=== PATIENT | female | born 1960 | race Caucasian/White ===

== ENCOUNTER 2016-05-18 11:59 | Emergency (ER) | payer BC ==
[2016-05-18 12:13] VITALS: BP 108/79
--- NOTE | 2016-05-18 13:52 | ERNOTE ---
Dizziness ER Record Date of Service: 05/18/16 Presenting Symptoms: vertigo Time Seen by Provider: 05/18/16 12:58 Source: patient, RN notes reviewed Exam Limitations: no limitations Allergies/Adverse Reactions: Allergies Allergy/AdvReac Type Severity Reaction Status Date / Time No Known Allergies Allergy Verified 05/18/16 12:13 Home Medications: HOME MEDICATIONS Meloxicam [Mobic] 15 mg PO DAILY 05/18/16 [Last Taken Unknown] - History of Present Illness Narrative: 55 y/o female brought to the ED by wheelchair from the walk-in clinic for vertigo. This began 2 days ago when she stood up from her bed. She took Dramamine yesterday with some improvement, but is worse again today. She has no prior history of this. She has been nauseous, but has not vomited since 2 days ago. Date (Duration): 05/16/16 Time (Timing): 03:00 Timing and Duration: sudden onset, still present Associated Symptoms: Present: nausea, vomiting. Absent: hearing loss, ringing/ roaring in ear, ear pain, headache, weakness, numbness, sweating, sense of confusion Sense of movement: Present: spinning Decreased ability to stand/walk:: Present: difficult Usually:: Present: walks w/o assistance Modifying Factors - (Improves): Reports: other - remaining still Modifying Factors - (Worsens): Reports: changing position, movement of head Prior Treament: Denies: recently seen, similar symptoms before Review of Systems - Review of Systems Constitutional: Absent: recent illness, fever, chills EYE: Absent: eye pain, blurred vision ENT: Absent: ear pain, nose congestion Respiratory: Absent: shortness of breath, cough Cardiology: Absent: chest pain, palpitations, syncope Gastrointestinal/Abdominal: Absent: diarrhea, abdominal pain Genitourinary: Present: no symptoms reported Musculoskeletal: Present: muscle pain, neck pain Skin: Absent: rash, lesions Neurological: Present: dizziness/light-headedness. Absent: headache Endocrine: Present: no symptoms reported Hematologic/Lymphatic: Present: no symptoms reported Psych: Present: no symptoms reported - Patient's Past Medical History Patient History - Medical: Arthritis Patient History - Cardiac/Respiratory: No pertinent hx Patient History - Cancer: Breast Patient History - Surgical Procedures: , Other - Mastectomy LMP (females 10-50): Menopausal - Social History Living Situations: spouse Smoking Status: Never smoker Have you smoked in the past 12 months: No Alcohol Use: none Drug Use: none Physical Exam - Physical Exam General Appearance: Present: wd/wn, alert, mild distress Eye Exam: Normal inspection: bilateral, PERRL: bilateral, EOMI: bilateral - no nystagmus Ears, Nose, Throat: Present: normal ENT inspection, hearing grossly normal, normal pharynx Neck: Present: normal inspection, nontender, supple Respiratory: Present: no respiratory distress, normal breath sounds, no accessory muscle use, lungs clear Cardiovascular/Chest: Present: regular rate, rhythm, no murmur, normal peripheral pulses Neurological Exam: Present: alert, oriented, normal mood/affect, no motor/ sensory deficits Skin Exam: Present: normal color, warm/dry ED Progress - Vital Signs Patient's Vital Signs:: I have reviewed the patient's vital signs. Vital Signs: Vital Signs 05/18/16 12:08 Temperature 35.1 C L Pulse Rate 60 Respiratory 14 Rate Blood Pressure 108/79 O2 Sat by Pulse 100 Oximetry - Progress/Reassessment Chief Complaint: Dizziness Progress:: Unchanged Plan - Plan Plan: Contacted PT - patient is to have eval/treatment of vertigo there tomorrow at noon. Unable to see patient today d/t her taking meclizine already today. Order faxed to PT. Departure Clinical Impression: Vertigo - Departure Disposition: Home Follow Up Needed Condition: Stable Instructions: Vertigo, [id number], Form - Excuse from Work, School, or Physical Activity Additional Instructions: Drink plenty of fluids Rest Do not take any more medications for dizziness See physical therapy tomorrow at 12:00 - their # is [phone] Referrals: HERNESTO MAURICIO [Primary Care Provider] -
--- OUTSIDE RECORDS SUMMARY | 2016-05-18 16:10 | XMS REPORT | Continuity of Care Document ---
:1960 Author Organization [facility] ([facility]) Address [address] [place] [address] Phone [phone] Care Team Providers Name Role Phone Marques Elmore Primary Care Provider [phone] Source Comments This disclosure is being made pursuant to the Care Everywhere program, applicable federal and state laws, and may not contain all informaitonavailable regarding this patient.[facility] ([facility]) Active Allergies and Adverse Reactions Allergen Noted Date Severity Reactions Comments No Known Allergies 07/16/2008 Current Medications Prescription Sig. Disp. Refills Start Date End Date Status meloxicam 15 mg tablet Take 15 mg by mouth Active daily. Indications: RHEUMATOID ARTHRITIS acetaminophen 500 mg Take 1,000 mg by Active tablet mouth every 6 hours as needed. Active Problems Problem Noted Date Screening mammogram for high-risk patient 07/28/2006 Most Recent Encounters Date Type Specialty Providers Description 05/05/2016 Hospital Encounter Hematology and KarDeonte reis MD Chief Comp : Patient Oncology Reported Reason For Visit Social History Tobacco Use Types Packs/Day Years Used Date Never Smoker Smokeless Tobacco: Never Used Alcohol Use Drinks/Week oz/Week Comments Yes 6 Standard drinks or equivalent 3.0 Last Filed Vital Signs Vital Sign Reading Time Taken Blood Pressure 116/74 05/07/2015 10:20 AM [facility] Pulse 76 05/07/2015 10:20 AM [facility] Temperature 36.1 C (97 F) 05/07/2015 10:20 AM 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 Respiratory Rate 16 05/07/2015 10:20 AM [facility] Height 1.702 m (5' 7") 05/08/2014 2:01 PM [facility] Weight 65.4 kg (144 lb 2.9 oz) 05/07/2015 10:20 AM [facility] Body Mass Index 22.58 05/07/2015 10:20 AM [facility] Oxygen Saturation 98% 05/07/2015 10:20 AM [facility] Plan of Care Health Maintenance Due Date Last Done Comments Hepatitis B Vaccine (1 of 3 - Primary 1960 Series) Tdap Vaccine 1973 Lipid Disorder Screening 1980 MMR Vaccine 1980 Td Vaccine 1980 Cervical Cancer Screening 1992 Mammogram 2002 Colonoscopy 07/08/2012 Influenza Vaccine: Seasonal (#1) 10/20/2015 HCV Screening Completed 01/23/2002, 01/23/2002 Results from Last 3 Months Not on file
== END 2016-05-18 13:42 | disposition home or self-care (01) ==
LOC: ER 11:59
DX: R42 Dizziness and giddiness (principal); Z85.3 Personal history of malignant neoplasm of breast

== ENCOUNTER 2018-10-11 17:21 | Observation (INO) ==
[2018-10-11] MEDS ORDERED: DIPHTH,PERTUSS(ACELL),TET VAC 0.5 ML VIAL IM ONE (17:45)
--- NOTE | 2018-10-11 17:55 | ERNOTE ---
Head Injury HPI - Narrative Date of Service: 10/11/18 - General Injury to: head, face, nose Time Seen by Provider: 10/11/18 17:30 Source: patient, family Exam Limitations: no limitations - Immun/Allergies/Home Medications Allergies/Adverse Reactions: Allergies Allergy/AdvReac Type Severity Reaction Status Date / Time No Known Allergies Allergy Verified 10/11/18 17:42 Home Medications: HOME MEDICATIONS Letrozole [Femara] 2.5 mg PO DAILY 03/26/17 [Last Taken 03/26/17] Meloxicam [Mobic] 15 mg PO DAILY PRN 03/26/17 [Last Taken Unknown] Palbociclib [Ibrance] 125 mg PO DAILY 03/26/17 [Last Taken 03/26/17] - Pain Score Pain Score #1 Pain Score: 8 - History of Present Illness Narrative: The patient is a 58 year old female who presents for 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 There are no associated symptoms. The patient reports pain to nose, forehead and posterior head, 8/10. There are no alleviating factors. There are aggravating factors of activity. Previous treatments have included: none. The past medical history includes: lymphedema to right upper extremity and metastatic breast cancer. The social history is negative. The patient has had no ill contacts. 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 Patient then fell back striking the back of her head. Patient denies LOC. Patient having bleeding since injury from left nare. Patient also reports pain to left hip since fall, patient ambulatory into ER with assistance of . Review of Systems - Review of Systems Constitutional: Present: no symptoms reported. Absent: recent illness, fever, fatigue EYE: Present: no symptoms reported. Absent: vision changes ENT: Present: nose pain. Absent: ear pain, sore throat Respiratory: Present: no symptoms reported. Absent: shortness of breath, cough Cardiology: Present: no symptoms reported. Absent: chest pain Gastrointestinal/Abdominal: Present: nausea. Absent: vomiting, diarrhea, abdominal pain Genitourinary: Present: no symptoms reported Musculoskeletal: Absent: neck pain Skin: Present: other - laceration Neurological: Present: headache, dizziness/light-headedness All Other Systems: All systems neg except as marked Social History: Tobacco: Smoking Status: Never smoker Physical Exam - Physical Exam General Appearance: Present: wd/wn, alert, moderate distress Head Exam: Present: contusions, lacerations - 3cm to right parietal occiput, t enderness, other - hematoma to right forehead, puncture to base of left nare without through opening to upper lip. Absent: active bleeding Eye Exam: Normal inspection: bilateral, PERRL: bilateral, EOMI: bilateral Ears, Nose, Throat: Present: normal except - - blood noted to left nare without active bleeding, normal pharynx Neck: Present: normal inspection, nontender, full range of motion Respiratory: Present: no respiratory distress, normal breath sounds, no accessory muscle use, lungs clear Cardiovascular/Chest: Present: regular rate, rhythm, no murmur Peripheral Pulses: N=norm/S=strong/W=weak/B=bound/A=absent: Radial (R): Normal, Radial (L): Normal Gastrointestinal/Abdominal: Present: normal bowel sounds, nontender, nondistended, soft, no organomegaly Extremity Exam: Present: normal range of motion, bony tenderness - lateral left hip Neurological Exam: Present: alert, oriented, normal mood/affect, no motor/sensory deficits, 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 - Results and Orders Patient's Lab Results:: I have reviewed the patient's lab results. - Vital Signs Patient's Vital Signs:: I have reviewed the patient's vital signs. Vital Signs: Vital Signs 10/11/18 17:37 Temperature 35.1 C L Pulse Rate 72 Respiratory Rate 16 Blood Pressure 113/79 O2 Sat by Pulse Oximetry 98 - X-Ray X-Ray #1 X-Ray: hip Interpretation: Reviewed by me X-ray Comments: IMPRESSION: 1. No acute osseous abnormality detected. Please see above Electronically signed by Donnie Lanza M.D.. - CT/Ultrasound CT/Ultrasound Narrative: Impression: No acute intracranial process detected. Nondisplaced/hairline right paramedian occipital bone fracture Electronically signed by Donnie Lanza M.D.. IMPRESSION: NO ACUTE OSSEOUS ABNORMALITY Electronically signed by Donnie Lanza M.D.. IMPRESSION: 1. No fracture of the facial bones Electronically signed by Donnie Lanza M.D. - Progress/Reassessment Chief Complaint: Head Injury Progress:: Improved Procedures right occipital Length of Repair/Wound (cm): 3 Wound's Depth/Shape: superficial, into subcutaneous, linear Wound Explored: clean, to base, in bloodless field, no foreign body Wound Intervention: irrigated w/saline Distal NVT: neuro/vasc intact Wound Repaired With: cole Number of Sutures: 5 Layer Closure: Simple Estimated blood loss (ml): 5 Wound Dressing: sterile dressing applied Complications: Pt alberto procedure well Immediate Post Procedure Note: Wound edges well approximated. Patient tolerated procedure well. Discussed with patient prior to closure pain related to local anesthesia vs staple placement, patient declines local anesthesia. Departure Clinical Impression: Post concussion syndrome Occipital bone fracture Qualifiers: Encounter type: initial encounter Fracture type: closed Occipital fracture type: unspecified fracture of occiput Laterality: right Qualified Code(s): S02.119A - Unspecified fracture of occiput, initial encounter for closed fracture Contusion of left hip Qualifiers: Encounter type: initial encounter Qualified Code(s): S70.02XA - Contusion of left hip, initial encounter - Departure Disposition: Still a patient Condition: Fair
[2018-10-11] MEDS ORDERED: ONDANSETRON HCL/PF 2 MG/ML VIAL IV ONE (18:27)
[2018-10-11 18:37] LABS: Hematocrit 34.6 % (37.0-47.0); Hemoglobin 12.1 gm/dL (12.5-16.0); Mean Cell Volume 103.3 fl (78-100); Mean Corpuscular Hemoglobin 36.1 pg (27-31); Mean Platelet Volume 9.6 fl (8-12.5); Neutrophil # 1.4 K/mm3 (1.3-6.0); Neutrophil % 52.7 % (42-75.0); Platelet Count 104 K/mm3 (150-450); Red Blood Count 3.35 M/mm3 (4.2-5.4); Red Cell Distribution Width 13.8 % (11.5-14.0); White Blood Count 2.6 K/mm3 (4.0-10.5)
[2018-10-11 18:56] LABS: Albumin * 3.5 gm/dl (3.4-5.0); Anion Gap 12.3 mmol/L (6.8-13.8); BUN/Creatinine Ratio 22.1 (9.0-21.6); Bilirubin, Total 0.4 mg/dL (0.0-1.1); Ca. Corrected For Albumin 9.8 mg/dL (8.4-10.2); Calcium * 9.7 mg/dL (7.9-10.9); Carbon Dioxide 30.5 mmol/L (24-32.6); Potassium 3.8 mmol/L (3.4-4.6)
[2018-10-11] MEDS ORDERED: HYDROmorphone HCL 1 MG/ML DISP.SYRIN IV ONE (19:11)
[2018-10-11] MEDS ORDERED: ONDANSETRON HCL/PF 2 MG/ML VIAL IV PRN (19:43)
[2018-10-11] MEDS ORDERED: ACETAMINOPHEN 325 MG TABLET PO PRN (20:33)
[2018-10-11] MEDS ORDERED: HYDROmorphone HCL 1 MG/ML DISP.SYRIN IV PRN (20:33)
[2018-10-11] MEDS ORDERED: ceFAZolin SODIUM 1 GM VIAL IM ONE (20:34)
[2018-10-11] MEDS ORDERED: MELOXICAM 15 MG TABLET PO PRN (20:35)
--- NOTE | 2018-10-11 21:06 | HP ---
Chief Complaint - Chief Complaint Date of Service: 10/11/18 Time of Service: 20:51 Chief Complaint: I have headache and facial pain due to head injury History of Present Illness: 58-year-old female with past medical history of metastatic breast cancer with right sided mastectomy, was evaluated in the ER due to head and facial injury that occurred after the patient was injured with a gait that was kicked by a steer. Patient was assisting with loading steer into a truck when the last year kicked the gait of the truck and flung backwards while the patient was standing behind it. Patient was struck in the face causing her to fall backwards and onto her head. Patient's quickly brought to the ER where she underwent multiple imaging studies of her head and face as well as her cervical area which revealed a nondisplaced occipital hairline fracture and hematoma superimposed on to the fracture. Patient also suffered a hematoma on her right frontal area but no fractures of her face were reported. Patient denies LOC but reports becoming nauseous during the ride to the hospital but she did not vomit. Medical History (Updated 10/11/18 @ 20:09 by Jane Gutierrez RN) Breast cancer Surgical History: Surgical History (Updated 10/11/18 @ 20:10 by Jane Gutierrez RN) Cystostomy care H/O section H/O mastectomy Family History: Family History (Last Updated 10/11/18 @ 20:11 by Jane Gutierrez RN) Father Diabetes Mother Diabetes Social History: Tobacco: Smoking Status: Never smoker Peds Patient Hx - Developmental: No Pertinent Hx Peds Patient Hx - Medical: No Pertinent Hx Peds Patient Hx - Cardiac/Respiratory: No Pertinent Hx Peds Patient Hx - Surgical: No Surgical History Patient History - Cancer: No Hx of Cancer Review Of Systems (GEN) - Review of Systems EENTM: Present: Other - Facial pain Respiratory: Present: No Symptoms Reported Cardiac: Present: No Symptoms Reported Abdominal: Present: Nausea Genitourinary: Present: No Symptoms Reported Musculoskeletal: Present: Joint Pain - Chronic right hip pain Neurological: Present: Headache Skin: Present: No Symptoms Reported Endocrine: Present: No Symptoms Reported Allergies/Adverse Reactions: Allergies Allergy/AdvReac Type Severity Reaction Status Date / Time No Known Allergies Allergy Verified 10/11/18 17:42 Home Medications: HOME MEDICATIONS Letrozole [Femara] 2.5 mg PO DAILY 01/06/18 [Last Taken 03/26/17] Meloxicam [Mobic] 15 mg PO DAILY PRN 03/26/17 [Last Taken Unknown] Palbociclib [Ibrance] 125 mg PO DAILY 03/26/17 [Last Taken 03/26/17] Exam - Exam Vital Signs: Vital Signs - Last Taken Temp 36.9 C 10/11/18 20:20 Pulse 56 L 10/11/18 20:20 Resp 12 10/11/18 20:20 BP 130/75 10/11/18 20:20 Pulse Ox 98 10/11/18 20:20 Constitutional: Present: Alert, Oriented x3, Cooperative, Well developed, Well nourished, No distress ENT Exam: Present: normal ENT inspection, hearing grossly normal, pharynx normal, TMs normal, other - Small laceration on left nostril. Eye Exam: bilateral eye: normal inspection, PERRL, EOMI Neck: Present: non-tender, full range of motion, supple, normal inspection, trachea midline Back Exam: Present: normal inspection, no CVA tenderness, no vertebral tenderness Breasts: Present: Other - Right thoracic scar due to right mastectomy Respiratory: Present: chest non-tender, lungs clear, normal breath sounds, no respiratory distress, no accessory muscle use Cardiovascular/Chest: Present: normal peripheral pulses, regular rate, rhythm, no chest tenderness, no edema, no gallop, no JVD, no murmur, no rub Peripheral Pulses: carotid (R): 3+, carotid (L): 3+, femoral (R): 3+, femoral (L): 3+, dorsalis-pedis (R): 3+, dorsalis-pedis (L): 3+ Abdomen: Present: Normal bowel sounds, soft, nontender, nondistended, no rebound tenderness, no hepatospenomegaly, no masses /Rectal: Present: Exam deferred Extremity: Present: normal range of motion, non-tender, no pedal edema, no calf tenderness, normal capillary refill, other - Right upper extremity edema Skin Exam: Present: normal color, warm/dry, no cyanosis Lymphatic: Present: other - Chronic right upper extremity lymphedema Neurologic: Present: 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 as tested, normal cerebellar test, no motor/sensory deficits, alert, normal mood/affect, oriented x 3 Appearance: Present: appropriate appearance Eye contact: Present: cooperative, good eye contact, normal speech Thoughts: Present: normal thought pattern, no apparent hallucination Diagnostic Studies: Abnormal Lab Results 10/11/18 10/11/18 Range/Units 18:31 18:31 WBC 2.6 L (4.0-10.5) K/mm3 RBC 3.35 L (4.2-5.4) M/mm3 Hgb 12.1 L (12.5-16.0) gm/dL Hct 34.6 L (37.0-47.0) % MCV 103.3 H (78-100) fl MCH 36.1 H (27-31) pg Plt Count 104 L (150-450) K/mm3 Eosinophils % 3.9 H (0.0-3.0) % Basophils % 1.6 H (0.0-1.0) % Lymphocytes # 0.86 L (1.5-3.5) k/mm3 Sodium 143 H (132-142) mmol/L Plasma Sodium 143 H (130-142) mmol/L BUN/Creatinine Ratio 22.1 H (9.0-21.6) Random Glucose 117 H (70-110) mg/dL Laboratory Results WBC 2.6 K/mm3 (4.0-10.5) L 10/11/18 18:31 RBC 3.35 M/mm3 (4.2-5.4) L 10/11/18 18:31 Hgb 12.1 gm/dL (12.5-16.0) L 10/11/18 18:31 Hct 34.6 % (37.0-47.0) L 10/11/18 18:31 MCV 103.3 fl (78-100) H 10/11/18 18:31 MCH 36.1 pg (27-31) H 10/11/18 18:31 MCHC 35.0 g/dl (32-36) 10/11/18 18:31 RDW 13.8 % (11.5-14.0) 10/11/18 18:31 Plt Count 104 K/mm3 (150-450) L 10/11/18 18:31 MPV 9.6 fl (8-12.5) 10/11/18 18:31 Immature Gran % (Auto) 0.40 % (0.001-0.429) 10/11/18 18:31 Immature Gran # (Auto) 0.01 K/mm3 (0.000-0.0310) 10/11/18 18:31 52.7 % (42-75.0) 10/11/18 18:31 33.6 % (20-51) 10/11/18 18:31 7.8 % (0.0-9) 10/11/18 18:31 3.9 % (0.0-3.0) H 10/11/18 18:31 1.6 % (0.0-1.0) H 10/11/18 18:31 Nucleated RBC % 0.0 k/mm3 (0-1) 10/11/18 18:31 1.4 K/mm3 (1.3-6.0) 10/11/18 18:31 0.86 k/mm3 (1.5-3.5) L 10/11/18 18:31 0.2 k/mm3 (0.0-1.0) 10/11/18 18:31 0.1 k/mm3 (0.0-0.7) 10/11/18 18:31 Absolute Basophils 0.0 k/mm3 (0.0-0.1) 10/11/18 18:31 Sodium 143 mmol/L (132-142) H 10/11/18 18:31 143 mmol/L (130-142) H 10/11/18 18:31 Potassium 3.8 mmol/L (3.4-4.6) 10/11/18 18:31 Chloride 104 mmol/L (97-106) 10/11/18 18:31 Carbon Dioxide 30.5 mmol/L (24-32.6) 10/11/18 18:31 12.3 mmol/L (6.8-13.8) 10/11/18 18:31 BUN 19 mg/dL (3-23) 10/11/18 18:31 0.86 mg/dL (0.4-1.4) 10/11/18 18:31 Est GFR (Non-Af Amer) 73 mL/min (60-130) 10/11/18 18:31 22.1 (9.0-21.6) H 10/11/18 18:31 117 mg/dL (70-110) H 10/11/18 18:31 Calcium 9.7 mg/dL (7.9-10.9) 10/11/18 18:31 Calcium Adj for Albumin 9.8 mg/dL (8.4-10.2) 10/11/18 18:31 0.4 mg/dL (0.0-1.1) 10/11/18 18:31 AST 34 U/L (0-48) 10/11/18 18:31 ALT 31 U/L (19-67) 10/11/18 18:31 61 U/L (50-170) 10/11/18 18:31 7.0 gm/dL (6.2-8.2) 10/11/18 18:31 3.5 gm/dl (3.4-5.0) 10/11/18 18:31 Assessment/Plan - Narrative Narrative: Patient was evaluated and medical chart was reviewed and decision to admit for observation in our [facility] was made. Patient denies any pain at the moment as long as she does not move, analgesics have been ordered to be administered on a as needed basis as well as antiemetics. Prophylactic single dose of IV antibiotic was ordered due to her skull fracture. Head CT was negative for any intracranial hemorrhage or acute abnormalities, and patient was sutured in the ER. At the moment she maintained stable vitals and we will continue to monitor closely. 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 (2) Lymphedema of right upper extremity Problem: Chronic (3) Occipital bone fracture Problem: Acute Qualifiers: Encounter type: initial encounter Fracture type: closed Occipital fracture type: unspecified fracture of occiput Laterality: right Qualified Code(s): S02.119A - Unspecified fracture of occiput, initial encounter for closed fracture (4) Post concussion syndrome Problem: Acute (5) Contusion of left hip Problem: Acute Qualifiers: Encounter type: initial encounter Qualified Code(s): S70.02XA - Contusion of left hip, initial encounter (6) Head injury due to trauma Problem: Acute (7) Headache Problem: Acute
[2018-10-11] MEDS ORDERED: ceFAZolin SODIUM 1 GM VIAL IV ONE (21:30)
[2018-10-11] MEDS: FAMOTIDINE 20 MG in DEXTROSE 5 % IN WATER 100 ML IV SCH ×2 (23:06)
[2018-10-12] MEDS ORDERED: PALBOCICLIB 125 MG PO SCH (09:00)
[2018-10-12] MEDS ORDERED: NON-FORMULARY 1 DOSE DOSE (Letrozole [Femara] 2.5 MG) PO SCH (09:00)
[2018-10-12] MEDS: FAMOTIDINE 20 MG in DEXTROSE 5 % IN WATER 100 ML IV SCH ×2 (09:19)
--- NOTE | 2018-10-12 09:30 | DS ---
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 (2) Lymphedema of right upper extremity Problem: Chronic (3) Occipital bone fracture Problem: Acute Qualifiers: Encounter type: initial encounter Fracture type: closed Occipital fracture type: unspecified fracture of occiput Laterality: right Qualified Code(s): S02.119A - Unspecified fracture of occiput, initial encounter for closed fracture (4) Post concussion syndrome Problem: Acute (5) Contusion of left hip Problem: Acute Qualifiers: Encounter type: initial encounter Qualified Code(s): S70.02XA - Contusion of left hip, initial encounter (6) Head injury due to trauma Problem: Acute (7) Headache Problem: Acute (8) Breast cancer metastasized to bone Problem: Chronic Description of Stay: 58-year-old female admitted for observation after head trauma that occurred at home on her forearm while loading steer into a truck. Patient was struck in the face by a gate and fell backwards into her head and endured a nondisplaced occipital bone skull fracture and a hematoma on her left frontal region. Patient did not lose consciousness but was dizzy after falling making a concussion very likely. Head, facial, and p.o. ordered cervical CT in the ER ruled out any other fractures besides the one mentioned in the occipital bone or any internal bleeding. Patient's wound in the posterior side of her head was sutured before she got to the floor she had a small laceration on her left nostril and a periorbital edema on the right side of her face. This morning she was evaluated and was found to be afebrile and in no acute distress, her only c omplaint was interrupted sleep throughout the night which is common in the hospital. However she reports adequate control of her pain and agreed to a prescription for pain control at home upon discharge. Patient maintained stable vitals and no adverse events were reported throughout the night. Patient was instructed to resume her routine meds and to follow-up with her primary care doctor for reevaluation. Procedures Performed: none Results and Findings: Lab Pending Results 10/11/18 18:31: WBC 2.6 L, RBC 3.35 L, Hgb 12.1 L, Hct 34.6 L, MCV 103.3 H, MCH 36.1 H, MCHC 35.0, RDW 13.8, Plt Count 104 L, MPV 9.6, Immature Gran % (Auto) 0.40, Immature Gran # (Auto) 0.01, Neutrophils % 52.7, Lymphocytes % 33.6, Monocytes % 7.8, Eosinophils % 3.9 H, Basophils % 1.6 H, Nucleated RBC % 0.0, Neutrophils # 1.4, Lymphocytes # 0.86 L, Monocytes # 0.2, Eosinophils # 0.1, Absolute Basophils 0.0 10/11/18 18:31: Sodium 143 H, Plasma Sodium 143 H, Potassium 3.8, Chloride 104, Carbon Dioxide 30.5, Anion Gap 12.3, BUN 19, Creatinine 0.86, Est GFR (Non-Af Amer) 73, BUN/Creatinine Ratio 22.1 H, Random Glucose 117 H, Calcium 9.7, Calcium Adj for Albumin 9.8, Total Bilirubin 0.4, AST 34, ALT 31, Alkaline Phosphatase 61, Total Protein 7.0, Albumin 3.5 Discharge Location: Home Disposition: Home self-care Condition: Fair Face to Face Encounter completed per [facility] Guidelines: No Discharge Activity: Activity as tolerated Discharge Diet: General/regular food Prescriptions (Any new or edited meds): oxyCODONE HCL/ACETAMINOPHEN [Percocet 5 MG/325 MG] 1 tab PO Q6H #20 tablet Complete Home Medications List: Complete Home Medication List: Letrozole [Femara] 2.5 mg PO DAILY 03/26/17 Meloxicam [Mobic] 15 mg PO DAILY PRN 03/26/17 Palbociclib [Ibrance] 125 mg PO DAILY 03/26/17 oxyCODONE HCL/ACETAMINOPHEN [Percocet 5 MG/325 MG] 1 tab PO Q6H #20 tablet 10/12/18
[2018-10-12 10:45] VITALS: BP 104/63
== END 2018-10-12 10:49 | disposition home or self-care (01) ==
LOC: ER 17:21 → MS 17:21
PROVIDERS: ADMIT Family Medicine; ATTEND Family Medicine
CPT/HCPCS: 36415; 70450; 70486; 72125; 73502; 80053; 85025; 90471; 90715; 96365; 96366; 96372; 96375; 99285; G0378; J2405